=== PATIENT | male | born 1980 | race Caucasian/White ===

== ENCOUNTER 2023-10-27 09:19 | Outpatient (REF) | payer OTHER, SELFPAY ==
[2023-10-27 14:43] LABS: MANUAL DIFF FLAG NO
[2023-10-27 14:55] LABS: Basophils Percent Auto 0.6 % (0-2); Eosinophils Percent Auto 0.6 % (0-4); Hematocrit 44.7 % (42.0-52.0); Hemoglobin 14.8 g/dl (14.0-18.0); Imm Gran Abs Auto 0.01 X10*3/uL (0.00-0.03); Imm Gran Pct Auto 0.2 % (0.0-0.4); Lymphocytes Absolute Auto 1.3 X10*3/uL (1.2-4.9); Lymphocytes Percent Auto 25.6 % (20-40); Mean Corpuscular HGB Conc 33.1 g/dl (31.0-36.0); Mean Corpuscular Hemoglobin 28.6 pg (27.0-33.0); Mean Corpuscular Volume 86.5 fL (80.0-98.0); Mean Platelet Volume 10.9 fL (9.4-12.4); Monocytes Absolute Auto 0.3 X10*3/uL (0.1-1.2); Monocytes Percent Auto 6.3 % (2-11); Neutrophils Absolute Auto 3.3 x10*3/uL (2.0-8.3); Neutrophils Percent Auto 66.7 % (45-73); Platelet Count 273 X10*3/uL (160-400); Red Blood Count 5.17 X10*6/uL (4.60-5.80); Red Cell Distribution Width 14.2 % (11.0-16.0); White Blood Count 4.9 X10*3/uL (4.8-10.8)
[2023-10-27 15:21] LABS: Alanine Aminotransferase 25 U/L (0-40); Albumin Level 4.6 g/dL (3.5-5.0); Alkaline Phosphatase 109 U/L (39-117); Anion Gap 12 (12-20); Aspartate Amino Transferase 25 U/L (5-37); Bilirubin Total 0.5 mg/dL (0.0-1.0); Blood Urea Nitrogen 16 mg/dL (9-16); Calcium 9.9 mg/dL (8.4-10.2); Carbon Dioxide 29 mmol/L (22-29); Chloride 103 mmol/L (96-108); Cholesterol 199 mg/dL (<200); Estimated Glomerular Filt Rate > 60; Glucose Random 82 mg/dL (60-115); HDL Cholesterol 70 mg/dL (>40); LDL Cholesterol Calculated 117 mg/dL (<100); Sodium 140 mmol/L (135-145); Total Protein 8.2 g/dL (6.5-8.0); Triglycerides 60 mg/dL (<150)
[2023-10-27 15:25] LABS: TSH reflex Free T4 5.52 uIU/mL (0.32-4.0)
[2023-10-27 16:17] LABS: Free T4 (Free Thyroxine) 0.71 ng/dL (0.71-1.85)
[2023-10-28 08:10] LABS: HIV AB/AG Nonreactive (Nonreactive); HIV Num 1 0.05 S/CO (0.00-0.99); ~HepC Num1 0.17 S/CO (0.00-0.79); ~Hepatitis C Antibody Nonreactive (Nonreactive)
== END 2023-10-27 09:20 | disposition home or self-care (01) ==
LOC: HO.CHCLDS 09:19
PROVIDERS: Visit Provider Family Medicine
DX: H02.402 Unspecified ptosis of left eyelid (principal)
CPT/HCPCS: 36415; 80053; 80061; 84439; 84443; 85025; 86803; 87389

== ENCOUNTER 2023-11-03 11:03 | Outpatient (REF) | payer OTHER, SELFPAY ==
[2023-11-03 13:37] LABS: Free T4 (Free Thyroxine) 0.68 ng/dL (0.71-1.85); Thyroid Stimulating Hormone 4.48 uIU/mL (0.32-4.0)
[2023-11-04 08:02] LABS: Thyroglobulin Antibodies 18 IU/mL (< or = 1)
== END 2023-11-03 11:04 | disposition home or self-care (01) ==
LOC: HO.CHCLDS 11:03
PROVIDERS: Visit Provider Family Medicine
DX: R79.89 Other specified abnormal findings of blood chemistry (principal)
CPT/HCPCS: 36415; 84439; 84443; 86800

== ENCOUNTER 2024-05-22 17:51 | Emergency (ER) | payer SELFPAY ==
--- NOTE | ~2024-05-22 | MR_ITS ---
EXAMINATION: MR BRAIN WITH AND WITHOUT CONTRAST MR ORBITS WITH AND WITHOUT CONTRAST CLINICAL INFORMATION: Right 3rd and 6th cranial nerve palsy COMPARISON: Same-day CT head TECHNIQUE: MRI of the brain and orbits was obtained using routine sequences before and following administration of intravenous contrast. A total of 6 mL of Gadavist was administered intravenously. FINDINGS: The globes are within normal limits. The extraocular muscles are symmetric in size and signal intensity. No enhancing retrobulbar mass/lesion. Mild prominence of the optic nerve sheaths. Otherwise, the optic nerves are normal in signal intensity. There is no reduced diffusion to suggest acute infarct. Susceptibility weighted sequence is within normal limits. No mass effect, extra-axial collection, midline shift, or other herniation. No abnormal intracranial enhancement. The ventricles and sulci are normal in size and configuration. Few scattered periventricular and subcortical T2/FLAIR hyperintense foci are nonspecific but likely represent chronic microvascular ischemic change. Intracranial flow voids are preserved. Complete opacification of the left maxillary sinus with additional scattered paranasal sinus polypoid mucosal thickening. The mastoid air cells are well-aerated. No focal expansile or destructive osseous lesion. MR/MR head/brain wo/w con IMPRESSION: No acute infarction or abnormal intracranial enhancement. Mild prominence of the optic nerve sheaths. Otherwise, the orbits and globes are within normal limits.
--- NOTE | ~2024-05-22 | CT_ITS ---
EXAMINATION: CT head/brain wo IV con CLINICAL INFORMATION: Reason for Exam right eyelid droop ? nerve palsy COMPARISON: None. TECHNIQUE: Contiguous axial imaging was performed from the skull base to vertex without intravenous contrast. Sagittal and coronal reformatted images were obtained. This CT examination was performed using dose optimization techniques as appropriate, variously including the following: * Automated exposure control * Adjustment of mA and/or kV according to patient size (this includes techniques or standardized protocols for targeted exams where dose is matched to indication/reason for exam; i.e. extremities or head) Use of iterative reconstruction technique DLP: 609 mGy-cm FINDINGS: There is no evidence of acute intracranial hemorrhage. No mass-effect or ventricular shift is noted. No acute, territorial loss of sellers-white differentiation. The ventricles and sulci are appropriate in size and configuration for the patient's stated age. No depressed calvarial fracture. Nonspecific mildly sclerotic focus along the right calvarial vertex. The mastoid air cells are well-aerated. Complete opacification of the left maxillary sinus with additional scattered trace paranasal sinus because of thickening. The right frontal sinuses underpneumatized. CT/CT head/brain wo IV con IMPRESSION: No acute intracranial hemorrhage or territorial loss of sellers-white differentiation.
--- NOTE | ~2024-05-22 | MR_ITS ---
EXAMINATION: MR BRAIN WITH AND WITHOUT CONTRAST MR ORBITS WITH AND WITHOUT CONTRAST CLINICAL INFORMATION: Right 3rd and 6th cranial nerve palsy COMPARISON: Same-day CT head TECHNIQUE: MRI of the brain and orbits was obtained using routine sequences before and following administration of intravenous contrast. A total of 6 mL of Gadavist was administered intravenously. FINDINGS: The globes are within normal limits. The extraocular muscles are symmetric in size and signal intensity. No enhancing retrobulbar mass/lesion. Mild prominence of the optic nerve sheaths. Otherwise, the optic nerves are normal in signal intensity. There is no reduced diffusion to suggest acute infarct. Susceptibility weighted sequence is within normal limits. No mass effect, extra-axial collection, midline shift, or other herniation. No abnormal intracranial enhancement. The ventricles and sulci are normal in size and configuration. Few scattered periventricular and subcortical T2/FLAIR hyperintense foci are nonspecific but likely represent chronic microvascular ischemic change. Intracranial flow voids are preserved. Complete opacification of the left maxillary sinus with additional scattered paranasal sinus polypoid mucosal thickening. The mastoid air cells are well-aerated. No focal expansile or destructive osseous lesion. MR/MR orbits face neck wo/w con IMPRESSION: No acute infarction or abnormal intracranial enhancement. Mild prominence of the optic nerve sheaths. Otherwise, the orbits and globes are within normal limits.
[2024-05-22 18:01] VITALS: BP 151/92; PULSE 85; RESP 16; TEMP 37; O2SAT 99; BMI 19.8
--- NOTE | 2024-05-22 18:03 | ED_ITS ---
HPI - Eye Problem General Chief complaint: Eye Problems Stated complaint: R eye droop Time Seen by Provider: 05/22/24 18:39 Source: patient Mode of arrival: ambulatory Limitations: no limitations History of Present Illness ED Provider: mervin KAN Narrative: Patient with history of hypothyroidism noticed drooping of the right eyelid and inability move his right eye to the right side since when he woke up 05/19/2024 no diplopia no pain in the eyes no headache no facial asymmetry no other motor weakness no history of Lyme disease no history of multiple sclerosis in the family or patient patient feels more drooping of the eye as the day progresses no other muscle involvement Related Data Previous Rx's ?Medication ?Instructions ?Recorded pyridostigmine bromide 30 mg tablet 30 mg PO TID #30 tabs 05/23/24 Allergies Allergy/AdvReac Type Severity Reaction Status Date / Time No Known Allergies Allergy Verified 05/22/24 18:02 Review of Systems 2 Review of Systems: Yes all other systems are reviewed and are negative [facility] Social History Social History Smoked in Last 30 Days: No Use of substances other than those prescribed or required for medical reasons: No Advance Directives: No Advance Directives Information Provided: No Do you have a plan to hurt others: No Plan Physical Exam 2 Vital Signs: Vital Signs: Last Vital Signs Temp 98.6 F 05/22/24 18:01 Pulse 85 05/22/24 18:01 Resp 16 05/22/24 18:01 BP 151/92 H 05/22/24 18:01 Pulse Ox 99 05/22/24 18:01 O2 Del Method Room Air 05/22/24 18:01 BMI result Body Mass Index 19.8 Appearance: Alert. Oriented X3. No acute distress. Eyes: PERRLA, No Nystagmus drooping of the right eyelid right eye with no lateral movements pupil constriction good with both direct and consensual no anisocoria ENT: Pharynx normal. Oral Mucosa moist Neck: Normal inspection. Neck supple. CVS: Normal heart rate and rhythm. Pulses normal. Respiratory: No respiratory distress. Equal air entry bilateral, no wheezing/rales/rhonchi Abdomen: Soft and nontender. Bowel sounds are present, no mass palpable, no CVA tenderness Skin: Skin warm and dry. Normal skin color. Normal skin turgor. Extremities: No lower extremity edema. No calf tenderness Neuro: Oriented X 3. No motor deficit. No sensory deficit.No cerebellar signs , except for 3rd and 6 now no other cranial nerve palsy Course Course Course Narrative: This is a Rapid Medical Examination (RME) performed by Juan Myers PA-C in triage. Full HPI, ROS, assessment and treatment plan per primary provider in the Main ED. 43 yo male w/ no significant pmhx here for eval of right upper eyelid drooping x4 days. no trauma or injury. admits to difficulty moving the eye to the right. no recent illness. wears glasses, does not wear contacts. no vision changes. + noted droop to right upper eyelid. Limited EOM of right eye w/ rightward motion. perrla. no pronator drift. No facial droop. No slurred speech. Strength 5/5 intact throughout. Plan: labs, viral serology, CT head/brain Medications Administered Discontinued Medications Generic Name Dose Route Start Last Admin Trade Name Freq PRN Reason Stop Dose Admin Gadobutrol 7.5 ml 05/22/24 22:09 05/22/24 22:10 Gadobutrol 7.5 Ml Vial IVPUSH 05/22/24 22:10 6 ml ONCE ONE Administration Pyridostigmine Ebony 60 mg 05/23/24 00:15 05/23/24 00:33 Pyridostigmine Ebony 60 Mg Tablet PO 05/23/24 00:16 Not Given ONCE ONE Medical Decision Making Medical Decision Making [facility] Narrative: Patient with right ptosis with right 6th nerve palsy CT and MRI negative for any aneurysm or lesion or infarct symptoms gets worse as the day progresses likely has myasthenia gravis will start on pyridostigmine 30 mg 3 times a day tried to contact Dr. Gould neurologist no answer not available on [facility] will advised patient to call the office in a.m. cold test was positive for the right eyelid favoring myasthenia gravis Differential Diagnosis Differential Diagnoses: The differential diagnosis associated with the presentation includes Isolated right 3rd no, 6 and of palsy//brain mass / aneurysm/myasthenia gravis/Nikolas syndrome Admission/Observation Consideration of admission/observation: Escalation of care including admission/observation considered Lab Data [facility] Lab Attestation statement: I reviewed the patient's lab results. 05/22/24 18:34 08/06/24 18:34 Labs: Lab Results 05/22/24 05/22/24 Range/Units 18:31 18:34 WBC 4.8 (4.8-10.8) X10*3/uL RBC 4.73 (4.60-5.80) X10*6/uL Hgb 13.8 L (14.0-18.0) g/dl Hct 40.0 L (42.0-52.0) % MCV 84.6 (80.0-98.0) fL MCH 29.2 (27.0-33.0) pg MCHC 34.5 (31.0-36.0) g/dl RDW 12.2 (11.0-16.0) % Plt Count 230 (160-400) X10*3/uL MPV 10.0 (9.4-12.4) fL Immature Gran % (Auto) 0.2 (0.0-0.4) % Neut % (Auto) 51.9 (45-73) % Lymph % (Auto) 35.6 (20-40) % Terry % (Auto) 10.4 (2-11) % Eos % (Auto) 1.3 (0-4) % Baso % (Auto) 0.6 (0-2) % Lymph # (Auto) 1.7 (1.2-4.9) X10*3/uL Terry # (Auto) 0.5 (0.1-1.2) X10*3/uL Eos # (Auto) 0.1 (0.0-0.4) X10*3/uL Baso # (Auto) 0.0 (0.0-0.2) X10*3/uL Abs Immat Gran (auto) 0.01 (0.00-0.03) X10*3/uL Absolute Neuts (auto) 2.5 (2.0-8.3) x10*3/uL Absolute Nucleated RBC 0.000 (0.0-0.012) X10*3/uL Nucleated RBC % (auto) 0.0 (0.0-0.2) /100WBC Sodium 143 (135-145) mmol/L Potassium 3.9 (3.3-5.1) mmol/L Chloride 104 (96-108) mmol/L Carbon Dioxide 28 (22-29) mmol/L Anion Gap 15 (12-20) BUN 20 H (9-16) mg/dL Creatinine 0.95 (0.5-1.4) mg/dL Estim Creat Clear Calc 84.3 Estimated GFR > 60 Random Glucose 98 (60-115) mg/dL Calcium 9.8 (8.4-10.2) mg/dL Magnesium 2.0 (1.6-2.6) mg/dL Total Bilirubin 0.2 (0.0-1.0) mg/dL AST 20 (5-37) U/L ALT 20 (0-40) U/L Alkaline Phosphatase 77 (39-117) U/L C-Reactive Protein 0.22 (< or = 0.50) mg/dL Total Protein 7.8 (6.5-8.0) g/dL Albumin 4.5 (3.5-5.0) g/dL Influenza Type A (PCR) NEGATIVE (Negative) Influenza Type B (PCR) NEGATIVE (Negative) RSV RNA Qual (PCR) NEGATIVE (Negative) SARS-CoV-2 RNA (RT-PCR) NEGATIVE (Negative) Independent Interpretation I performed an independent interpretation of an: CT Scan Radiology Impression Discussion of test interpretation with radiology: I have reviewed the radiologist's reading. Radiologist Impression: MR/MR head/brain wo/w con IMPRESSION: No acute infarction or abnormal intracranial enhancement. Mild prominence of the optic nerve sheaths. Otherwise, the orbits and globes are within normal limits. Critical Care Time Critical Care Time Critical Care Time: Yes Total Critical Care Time: 55 Attestation: The patient was critically ill with a high probability of imminent or life threatening deterioration. I spent greater than 60???minutes of discontinuous time evaluating the patient,delivering critical care at the bedside, discussing and evaluating pertinent data with consultants. Critical care time does not include time spent performing separately billable procedures or teaching. Total time spent performing critical care was 55???minutes. Discharge Plan Discharge Clinical Impression: Myasthenia gravis, Ptosis of eyelid, right Patient Disposition: Home, Self-Care Instructions: Myasthenia Gravis (ED) Additional Instructions: Likely you have myasthenia gravis involving your eyes Your MRI does negative for stroke Start taking the medication as prescribed and follow with neurologist within a week Report to the ER if worsening of symptoms Follow with neurologist Prescriptions: New pyridostigmine bromide 30 mg tablet 30 mg PO TID Qty: 30 0RF Referrals: Shaun Gould MD [Physician] - 3 days Print Language: [place]de[place]
[2024-05-22 18:40] LABS: MANUAL DIFF FLAG NO
[2024-05-22 18:49] LABS: Basophils Percent Auto 0.6 % (0-2); Eosinophils Absolute Auto 0.1 X10*3/uL (0.0-0.4); Eosinophils Percent Auto 1.3 % (0-4); Hemoglobin 13.8 g/dl (14.0-18.0); Imm Gran Abs Auto 0.01 X10*3/uL (0.00-0.03); Imm Gran Pct Auto 0.2 % (0.0-0.4); Lymphocytes Absolute Auto 1.7 X10*3/uL (1.2-4.9); Lymphocytes Percent Auto 35.6 % (20-40); Mean Corpuscular HGB Conc 34.5 g/dl (31.0-36.0); Mean Corpuscular Hemoglobin 29.2 pg (27.0-33.0); Mean Corpuscular Volume 84.6 fL (80.0-98.0); Monocytes Absolute Auto 0.5 X10*3/uL (0.1-1.2); Monocytes Percent Auto 10.4 % (2-11); Neutrophils Absolute Auto 2.5 x10*3/uL (2.0-8.3); Neutrophils Percent Auto 51.9 % (45-73); Platelet Count 230 X10*3/uL (160-400); Red Blood Count 4.73 X10*6/uL (4.60-5.80); Red Cell Distribution Width 12.2 % (11.0-16.0); White Blood Count 4.8 X10*3/uL (4.8-10.8)
[2024-05-22 18:58] LABS: Alanine Aminotransferase 20 U/L (0-40); Albumin Level 4.5 g/dL (3.5-5.0); Alkaline Phosphatase 77 U/L (39-117); Anion Gap 15 (12-20); Aspartate Amino Transferase 20 U/L (5-37); Bilirubin Total 0.2 mg/dL (0.0-1.0); Blood Urea Nitrogen 20 mg/dL (9-16); C Reactive Protein 0.22 mg/dL (< or = 0.50); Calcium 9.8 mg/dL (8.4-10.2); Carbon Dioxide 28 mmol/L (22-29); Chloride 104 mmol/L (96-108); Creatinine Clr Calc Pharmacy 84.3; Estimated Glomerular Filt Rate > 60; Glucose Random 98 mg/dL (60-115); Potassium 3.9 mmol/L (3.3-5.1); Sodium 143 mmol/L (135-145); Total Protein 7.8 g/dL (6.5-8.0)
[2024-05-22 19:25] LABS: Influenza A PCR NEGATIVE (Negative); Influenza B PCR NEGATIVE (Negative); Resp Syncy Virus RNA Qual PCR NEGATIVE (Negative); SARS COV2 PCR INHOUSE NEGATIVE (Negative)
--- NOTE | 2024-05-22 19:27 | PC.NURSE ---
MRI screening form completed and faxed
--- NOTE | 2024-05-22 21:05 | PC.NURSE ---
pt to MRI
[2024-05-22] MEDS: gadobutroL 7.5 ML VIAL IVPUSH (22:10)
[2024-05-23 00:51] VITALS: BP 132/73; PULSE 71; RESP 16; O2SAT 99
[2024-05-23 01:02] VITALS: BP 132/73; PULSE 71; RESP 16; TEMP 37; O2SAT 99
[2024-05-23 01:09] LABS: Thyroid Stimulating Hormone 0.09 uIU/mL (0.32-4.0)
[2024-05-24 12:14] LABS: Lyme Abs Screen <0.90 index
[2024-05-24 22:18] LABS: A. Phagocytphilium DNA,RT-PCR NOT DETECTED (NOT DETECTED); Babesia Microti DNA, RT-PCR NOT DETECTED (NOT DETECTED); Borrelia Miyamotoi,DNA RT-PCR NOT DETECTED (NOT DETECTED); E.Chaffeensis DNA RT-PCR NOT DETECTED (NOT DETECTED); Lyme(Borrelia ssp)DNA RT-PCR NOT DETECTED (NOT DETECTED)
== END 2024-05-23 01:03 | disposition home or self-care (01) ==
PROVIDERS: Physician Assistant Medical; Emergency Provider Internal Medicine
DX: G70.00 Myasthenia gravis without (acute) exacerbation (principal); H02.401 Unspecified ptosis of right eyelid; E03.9 Hypothyroidism, unspecified; Z03.818 Encounter for observation for suspected exposure to other biological agents ruled out
CPT/HCPCS: 0241U; 36415; 70450; 70543; 70553; 80053; 83735; 84443; 85025; 86140; 86617; 86618; 87468; 87469; 87478; 87484; 87798; 96374; 99284; 99285; A9585